=== PATIENT | female | born 1990 | race Caucasian/White ===

== ENCOUNTER 2020-08-26 01:29 | Emergency (ER) | payer MEDICAID ==
[~2020-08-26] VITALS: Ht 160 cm; Wt 98.5 kg
[~2020-08-26 01:29] MED LIST: PREN-88 PO
[2020-08-26] MEDS ORDERED: KETOROLAC 30MG/ML VIAL IM ONE (02:15)
[2020-08-26 02:27] VITALS: BP 137/99
== END 2020-08-26 03:04 | disposition home or self-care (01) ==
LOC: ER 01:34
DX: H60.92 Unspecified otitis externa, left ear (principal)
CPT/HCPCS: 81025; 96372; 99283; J1885

== ENCOUNTER 2022-05-06 03:01 | Observation (INO) | payer MEDICAID ==
[~2022-05-06] VITALS: Ht 165.1 cm; Wt 103.0 kg
== END 2022-05-06 10:00 | disposition home or self-care (01) ==
LOC: 8 EST LDRP 03:01
PROVIDERS: ADMIT Specialist; ATTEND Specialist
DX: O46.92 Antepartum hemorrhage, unspecified, second trimester (principal); Z3A.23 23 weeks gestation of pregnancy
CPT/HCPCS: 36415; 59025; 76805; 86850; 86900; 86901; G0378; 99281